=== PATIENT | female | born 1975 | race Two or more races ===

== ENCOUNTER 2025-04-11 18:41 | Emergency (ER) | payer MEDICAID, SELFPAY ==
[2025-04-11 19:21] VITALS: BP 143/92; PULSE 80; RESP 20; TEMP 36.7; O2SAT 97
--- NOTE | 2025-04-11 19:45 | EDNOTE_ITS ---
ED Headache RME/HPI General Chief Complaint: Headache Stated Complaint: HEADACHE SINCE DEC. WENT TO [facility] A MONTH AGO Time Seen by Provider: 04/11/25 19:32 Source: patient Arrival date/time: 04/11/25 18:41 Mode of arrival: ambulatory Limitations: no limitations RME / HPI RME / HPI Narrative: 49-year-old female presents with a headache that she has had since this last December. She will be seen this coming Wednesday by a specialist. MD Complaint: headache and migraine Onset (ago): year(s) Onset description: other (picking) Location: frontal, temporal, occipital and diffuse Severity scale (1-10): 5 Related Data Previous Rx's ?Medication ?Instructions ?Recorded ibuprofen 800 mg tablet 800 mg PO TID PRN pain #30 t abs 09/24/23 tamsulosin 0.4 mg capsule (Flomax) 0.4 mg PO QDAY #10 caps 09/24/23 Allergies Allergy/AdvReac Type Severity Reaction Status Date / Time No Known Allergies Allergy Verified 04/11/25 18:47 Review of Systems Constitutional Constitutional: Reports system reviewed and no additional complaints, except as documented Eyes Eyes: Reports system reviewed and no additional complaints, except as documented, Denies dry eyes, Denies exophthalmos and Reports floaters Cardiovascular Cardiovascular: Denies chest pain with activity and Denies claudication ED Exam General Limitations: Present no limitations General appearance: Present alert and in no apparent distress Head Head exam: Present atraumatic Eye Eye exam: Present normal appearance, PERRL and EOMI ENT ENT exam: Present normal exam, normal oropharynx and mucous membranes moist Neck Neck exam: Present normal inspection, full ROM and trachea midline Extremities Exam Extremities exam: Present normal inspection and full ROM Back Exam Back exam: Present normal inspection and full ROM Neurological Exam Neurological exam: Present alert, oriented X3 and other (Patient is able to walk in tandem, patient is able to touch her index finger to her nose, patient is able to tap her heels to her shins.) Psychiatric Psychiatric exam: Present normal affect and normal mood Skin Skin exam: Present warm, dry, intact and normal color Course Course Course Narrative: Patient will have diphenhydramine 50 mg IM as well as Toradol 30 mg IM. She will be discharged in no apparent distress and she is to keep the appointment with her doctor as discussed this Wednesday. Quality Measures none Orders Category Date Time Status DiphenhydrAMINE INJ [Benadryl Inj] Med 04/11/25 19:33 Discontinued 50 mg IM X1 ONE Ketorolac Inj [Toradol Inj] Med 04/11/25 19:33 Discontinued 30 mg IM X1 ONE Done Vital Signs Vital signs: Vital Signs Temperature 98.0 F 04/11/25 19:21 Pulse Rate 80 04/11/25 19:21 Respiratory Rate 20 04/11/25 19:21 Blood Pressure 143/92 H 04/11/25 19:21 Pulse Oximetry (%) 97 04/11/25 19:21 Oxygen Delivery Method Room Air 04/11/25 19:21 Pulse ox 97% room air Headache MDM Narrative MDM Narrative:: Patient will be given Toradol 30 mg IM and diphenhydramine 50 mg IM, she will be discharged in no apparent distress to follow-up with primary care physician as discussed this coming Wednesday Patient data External records reviewed:: Other (specify) Clinical information provided by:: patient Social determinants that could affect healthcare access:: none Patient has the following chronic illnesses:: Migraine headache How is presenting disease/condition affected by chronic disease/condition?: caused by Evaluation data The following diagnostics were reviewed and interpreted by me:: lab results (No labs required) Lab and/or radiology exams considered but not ordered:: No radiology required Interpretation Summary: Migraine headaches Medications / Prescriptions Medications or Prescriptions considered but not ordered:: N/A Medication administrations:: Medication Administration History Discontinued Medications Diphenhydramine HCl (Diphenhydramine Inj 50 Mg/Ml Vial) 50 mg IM X1 ONE Stop: 04/11/25 19:34 Ketorolac Tromethamine (Ketorolac Inj 60 Mg/2 Ml Vial) 30 mg IM X1 ONE Stop: 04/11/25 19:34 Done Consultations Consultation(s) initiated? (list below): No Diagnosis Differential diagnosis headache: migraine, tension headache, subarachnoid hemorrhage and headache Most likely diagnosis given after review of the tests above:: No test ordered Admission Indicated Admission indicated?: not indicated Admission Request Was there a request for admission?: No Admission Attestation Admission request attestation: N/A Disposition Plan Disposition Plan: Discharge Discharge Attestation Discharge Attestation: The patient and all family members were given an opportunity to ask questions and understood the discharge instructions. Discharge instructions specifically effects, indications for sooner follow up or return to the emergency department, and the expected course of current diagnosis. Patient condition: Stable Discharge Plan Plan Patient Disposition: HOME (Self Care) Discharge Disposition comment: Patient discharged in no apparent distress Patient condition on transfer: Stable Prescriptions/Referrals Prescriptions/Med Rec: No Action tamsulosin [Flomax] 0.4 mg capsule 0.4 mg PO QDAY Qty: 10 0RF ibuprofen 800 mg tablet 800 mg PO TID PRN (Reason: pain) Qty: 30 0RF Problem List Clinical Impression: Migraine Impression comment: Migraine Patient/Caregiver Discharge Instructions Discharge Activity: activity as tolerated Education Materials: ED Headache, Migraine, Classic Print Language: Haitian Stand Alone Forms: Tari Award Info., Patient Portal Info Letter PA/MOUNT[facility] OR GLACIER GUIDE Supervising Physician PA/MOUNT[facility] OR GLACIER GUIDE Supervising Physician: Hector
[2025-04-11] MEDS: KETOROLAC INJ 60 MG/2 ML VIAL 30 MG IM (19:50)
[2025-04-11] MEDS: DiphenhydrAMINE INJ 50 MG/ML VIAL IM (19:50)
== END 2025-04-11 20:21 | disposition home or self-care (01) ==
PROVIDERS: Emergency Provider Emergency Medicine; PCP Family Medicine
DX: G43.909 Migraine, unspecified, not intractable, without status migrainosus (principal)
CPT/HCPCS: 96372; 99283; J1200; J1885